=== PATIENT | male | born 1965 | race Caucasian/White ===

== ENCOUNTER 2017-11-22 00:29 | Inpatient (IN) | payer MEDICAID ==
[2017-11-22 01:42] LABS: HEMATOCRIT 44.6 % (42.0-52.0); HEMOGLOBIN 15.8 g/dl (14.0-18.0); MEAN CORPUSCULAR HEMOGLOBIN 33.8 pg (27.0-33.0); MEAN CORPUSCULAR HGB CONC 35.4 g/dl (32.0-36.5); MEAN CORPUSCULAR VOLUME 95.3 fl (80.0-96.0); PLATELET COUNT, AUTOMATED 257 10^3/uL (150-450); RED BLOOD COUNT 4.68 10^6/uL (4.30-6.10); RED CELL DISTRIBUTION WIDTH 12.5 % (11.5-14.5); WHITE BLOOD COUNT 10.2 10^3/uL (4.0-10.0)
[2017-11-22 02:10] LABS: AMPHETAMINES LEVEL URINE NEGATIVE (NEGATIVE); BARBITURATES URINE NEGATIVE (NEGATIVE); BENZODIAZEPINES URINE NEGATIVE (NEGATIVE); CANNABINOIDS URINE POSITIVE (NEGATIVE); COCAINE METABOLITE URINE NEGATIVE (NEGATIVE); METHADONE URINE NEGATIVE (NEGATIVE); OPIATES URINE NEGATIVE (NEGATIVE); PHENCYCLIDINE URINE NEGATIVE (NEGATIVE)
[2017-11-22 02:19] LABS: ACETAMINOPHEN LEVEL < 2.0 UG/ML (10.0-30.0); ALBUMIN 3.5 GM/DL (3.2-5.2); ALBUMIN/GLOBULIN RATIO 0.97 (1.00-1.93); ALKALINE PHOSPHATASE 57 U/L (45-117); ALT/SGPT 34 U/L (12-78); ANION GAP 10 MEQ/L (8-16); AST/SGOT 30 U/L (7-37); BILIRUBIN,DIRECT < 0.1 MG/DL (0.0-0.2); BILIRUBIN,TOTAL 0.3 MG/DL (0.2-1.0); BLOOD UREA NITROGEN 11 MG/DL (7-18); CALCIUM LEVEL 8.8 MG/DL (8.5-10.1); CARBON DIOXIDE LEVEL 25 MEQ/L (21-32); CHLORIDE LEVEL 108 MEQ/L (98-107); CREATININE FOR GFR 0.81 MG/DL (0.70-1.30); ETHYL ALCOHOL (ETHANOL) 0.135 % (0.000-0.010); GLOMERULAR FILTRATION RATE > 60.0 (>56); GLUCOSE, FASTING 128 MG/DL (70-105); POTASSIUM SERUM 3.3 MEQ/L (3.5-5.1); SALICYLATE LEVEL 2.7 MG/DL (5.0-30.0); SODIUM LEVEL 143 MEQ/L (136-145); TOTAL PROTEIN 7.1 GM/DL (6.4-8.2)
[2017-11-22] MEDS ORDERED: traZODone 50 MG TAB PO (04:30)
[2017-11-22] MEDS ORDERED: MAALOX 30 ML SUSP *UDC PO (04:30)
[2017-11-22] MEDS ORDERED: ACETAMINOPHEN TAB 650MG DOSE (2X325MG) PO (04:30)
[2017-11-22] MEDS ORDERED: MOM 30ML SUSPENSION UDC PO (04:30)
[2017-11-22] MEDS ORDERED: LORazepam 2 MG TAB PO (04:30)
[2017-11-22] MEDS: POTASSIUM CHLORIDE 10 MEQ SR TABLET PO (04:32)
[2017-11-22] MEDS: THIAMINE 100 MG TAB PO ×2 (04:45→09:23)
[2017-11-22] MEDS: FOLIC ACID 1 MG TAB PO (09:23)
[2017-11-22] MEDS: MULTIVITAMINS/MINERALS THERAP 1 TAB PO (09:23)
[2017-11-23 07:32] LABS: HEMATOCRIT 47.3 % (42.0-52.0); HEMOGLOBIN 16.6 g/dl (14.0-18.0); MEAN CORPUSCULAR HEMOGLOBIN 33.8 pg (27.0-33.0); MEAN CORPUSCULAR HGB CONC 35.1 g/dl (32.0-36.5); MEAN CORPUSCULAR VOLUME 96.3 fl (80.0-96.0); PLATELET COUNT, AUTOMATED 257 10^3/uL (150-450); RED BLOOD COUNT 4.91 10^6/uL (4.30-6.10); RED CELL DISTRIBUTION WIDTH 12.5 % (11.5-14.5); WHITE BLOOD COUNT 8.8 10^3/uL (4.0-10.0)
[2017-11-23 07:57] LABS: ANION GAP 3 MEQ/L (8-16); BLOOD UREA NITROGEN 14 MG/DL (7-18); CALCIUM LEVEL 9.2 MG/DL (8.5-10.1); CARBON DIOXIDE LEVEL 33 MEQ/L (21-32); CHLORIDE LEVEL 106 MEQ/L (98-107); CREATININE FOR GFR 0.87 MG/DL (0.70-1.30); GLOMERULAR FILTRATION RATE > 60.0 (>56); GLUCOSE, FASTING 112 MG/DL (70-105); SODIUM LEVEL 142 MEQ/L (136-145)
[2017-11-23 08:04] LABS: POTASSIUM SERUM 5.2 MEQ/L (3.5-5.1)
[2017-11-23] MEDS: FOLIC ACID 1 MG TAB PO (09:04)
[2017-11-23] MEDS: MULTIVITAMINS/MINERALS THERAP 1 TAB PO (09:04)
[2017-11-23] MEDS: THIAMINE 100 MG TAB PO ×2 (09:04→21:00)
[2017-11-23 09:48] LABS: ESTIMATED AVERAGE GLUCOSE 126 MG/DL (60-110)
[2017-11-23] MEDS: FLUoxetine 20 MG CAP PO (11:47)
[2017-11-24] MEDS: MULTIVITAMINS/MINERALS THERAP 1 TAB PO (08:33)
[2017-11-24] MEDS: FLUoxetine 20 MG CAP PO (08:33)
[2017-11-24] MEDS: FOLIC ACID 1 MG TAB PO (08:33)
[2017-11-24] MEDS: THIAMINE 100 MG TAB PO ×2 (08:34→21:00)
[2017-11-25] MEDS: FOLIC ACID 1 MG TAB PO (09:15)
[2017-11-25] MEDS: MULTIVITAMINS/MINERALS THERAP 1 TAB PO (09:15)
[2017-11-25] MEDS: FLUoxetine 20 MG CAP PO (09:15)
[2017-11-25] MEDS: GABAPENTIN 300 MG CAP PO (20:59)
[2017-11-26] MEDS: FOLIC ACID 1 MG TAB PO (08:32)
[2017-11-26] MEDS: FLUoxetine 20 MG CAP PO (08:32)
[2017-11-26] MEDS: MULTIVITAMINS/MINERALS THERAP 1 TAB PO (08:32)
[2017-11-26] MEDS: traZODone 100 MG TAB PO (21:26)
[2017-11-26] MEDS: GABAPENTIN 400 MG CAP PO (21:26)
[2017-11-27] MEDS: FOLIC ACID 1 MG TAB PO (08:05)
[2017-11-27] MEDS: MULTIVITAMINS/MINERALS THERAP 1 TAB PO (08:05)
[2017-11-27] MEDS: FLUoxetine 20 MG CAP PO (08:06)
[2017-11-27] MEDS: traZODone 100 MG TAB PO (21:59)
[2017-11-27] MEDS: GABAPENTIN 400 MG CAP PO (22:00)
[2017-11-28] MEDS: MULTIVITAMINS/MINERALS THERAP 1 TAB PO (08:50)
[2017-11-28] MEDS: FOLIC ACID 1 MG TAB PO (08:50)
[2017-11-28] MEDS: FLUoxetine 20 MG CAP PO (08:50)
[2017-11-28] MEDS: GABAPENTIN 400 MG CAP PO (21:20)
[2017-11-29] MEDS: FOLIC ACID 1 MG TAB PO (08:36)
[2017-11-29] MEDS: MULTIVITAMINS/MINERALS THERAP 1 TAB PO (08:36)
[2017-11-29] MEDS: FLUoxetine 20 MG CAP PO (08:36)
[2017-11-29] MEDS: GABAPENTIN 400 MG CAP PO (21:54)
[2017-11-30] MEDS: FLUoxetine 20 MG CAP PO (08:20)
[2017-11-30] MEDS: FOLIC ACID 1 MG TAB PO (08:20)
[2017-11-30] MEDS: MULTIVITAMINS/MINERALS THERAP 1 TAB PO (08:20)
[2017-11-30] MEDS: GABAPENTIN 400 MG CAP PO (20:01)
[2017-12-01] MEDS: MULTIVITAMINS/MINERALS THERAP 1 TAB PO (08:09)
[2017-12-01] MEDS: FLUoxetine 20 MG CAP PO (08:09)
[2017-12-01] MEDS: FOLIC ACID 1 MG TAB PO (08:09)
[2017-12-01] MEDS: GABAPENTIN 400 MG CAP PO (21:47)
[2017-12-02] MEDS: FLUoxetine 20 MG CAP PO (08:21)
[2017-12-02] MEDS: FOLIC ACID 1 MG TAB PO (08:21)
[2017-12-02] MEDS: MULTIVITAMINS/MINERALS THERAP 1 TAB PO (08:21)
[2017-12-02] MEDS: GABAPENTIN 400 MG CAP PO (21:31)
[2017-12-03] MEDS: FLUoxetine 20 MG CAP PO (08:24)
[2017-12-03] MEDS: FOLIC ACID 1 MG TAB PO (08:24)
[2017-12-03] MEDS: MULTIVITAMINS/MINERALS THERAP 1 TAB PO (08:24)
[2017-12-03] MEDS: GABAPENTIN 400 MG CAP PO (21:25)
[2017-12-04] MEDS: FOLIC ACID 1 MG TAB PO (08:03)
[2017-12-04] MEDS: FLUoxetine 20 MG CAP PO (08:03)
[2017-12-04] MEDS: MULTIVITAMINS/MINERALS THERAP 1 TAB PO (08:03)
[2017-12-04] MEDS: GABAPENTIN 400 MG CAP PO (20:37)
[2017-12-05] MEDS: FOLIC ACID 1 MG TAB PO (09:06)
[2017-12-05] MEDS: FLUoxetine 20 MG CAP PO (09:06)
[2017-12-05] MEDS: MULTIVITAMINS/MINERALS THERAP 1 TAB PO (09:06)
== END 2017-12-05 13:30 | disposition home or self-care (01) | DRG 754 ==
LOC: M PSY 11-25 15:04 → M ED 00:29 → M ED INP 04:16 → M PSY 10:20
DX: F43.21 Adjustment disorder with depressed mood (principal); E87.6 Hypokalemia; F10.10 Alcohol abuse, uncomplicated; F14.90 Cocaine use, unspecified, uncomplicated; D72.829 Elevated white blood cell count, unspecified; F17.200 Nicotine dependence, unspecified, uncomplicated

== ENCOUNTER 2018-01-06 15:02 | Emergency (ER) | payer MEDICAID ==
[2018-01-06 16:54] LABS: INFLUENZA A AMPLIFICATION NEGATIVE (NEGATIVE); INFLUENZA B AMPLIFICATION NEGATIVE (NEGATIVE)
== END 2018-01-06 18:12 | disposition home or self-care (01) ==
LOC: M ED 15:02
DX: J06.9 Acute upper respiratory infection, unspecified (principal); R03.0 Elevated blood-pressure reading, without diagnosis of hypertension; F17.200 Nicotine dependence, unspecified, uncomplicated; F41.9 Anxiety disorder, unspecified; Z79.899 Other long term (current) drug therapy
CPT/HCPCS: 87502

== ENCOUNTER → 2018-01-11 | Outpatient (REF) | payer OTHER, MEDICAID ==
[2018-01-11 16:28] LABS: CHLAMYDIA DNA AMPLIFICATION NEGATIVE (NEGATIVE); GC DNA AMPLIFICATION NEGATIVE (NEGATIVE)
== END ==
LOC: M LAB REF 13:17
DX: Z00.00 Encounter for general adult medical examination without abnormal findings (principal)

== ENCOUNTER → 2018-01-11 | Outpatient (REF) | payer OTHER, MEDICAID ==
[2018-01-11 14:41] LABS: ANION GAP 7 MEQ/L (8-16); BLOOD UREA NITROGEN 13 MG/DL (7-18); CALCIUM LEVEL 8.7 MG/DL (8.5-10.1); CARBON DIOXIDE LEVEL 25 MEQ/L (21-32); CHLORIDE LEVEL 106 MEQ/L (98-107); CHOLESTEROL LEVEL 210 MG/DL (<200); CREATININE FOR GFR 0.83 MG/DL (0.70-1.30); GLOMERULAR FILTRATION RATE > 60.0 (>56); GLUCOSE, FASTING 102 MG/DL (70-100); HDL CHOLESTEROL 35 MG/DL (>40); NON-HDL-C 175 MG/DL; POTASSIUM SERUM 4.2 MEQ/L (3.5-5.1); SODIUM LEVEL 138 MEQ/L (136-145); TRIGLYCERIDES LEVEL 245 MG/DL (<150)
[2018-01-11 15:07] LABS: HEPATITIS C VIRUS ABY INDEX 0.1 INDEX (<0.8)
[2018-01-11 15:08] LABS: HIV 1&2 SCREEN CENTAUR NEGATIVE (NEGATIVE)
== END ==
LOC: M LAB REF 13:54
DX: Z00.00 Encounter for general adult medical examination without abnormal findings (principal); E87.5 Hyperkalemia

== ENCOUNTER → 2018-01-21 | Outpatient (CLI) | payer MEDICAID | LOC: M OUTALCOH 11:34 | DX: F10.20 Alcohol dependence, uncomplicated (principal); F12.20 Cannabis dependence, uncomplicated ==

== ENCOUNTER 2018-02-01 09:37 | Outpatient (RCR) | payer MEDICAID | END 2018-02-16 | LOC: M OUTALCOH 09:37 | DX: F10.20 Alcohol dependence, uncomplicated (principal); F12.20 Cannabis dependence, uncomplicated; F17.200 Nicotine dependence, unspecified, uncomplicated ==

== ENCOUNTER 2018-02-18 13:59 | Outpatient (RCR) | payer MEDICAID | END 2018-03-18 | LOC: M OUTALCOH 13:59 | DX: F10.20 Alcohol dependence, uncomplicated (principal); F12.20 Cannabis dependence, uncomplicated; F17.200 Nicotine dependence, unspecified, uncomplicated ==

== ENCOUNTER 2018-04-02 16:00 | Outpatient (RCR) | payer MEDICAID | END 2018-04-18 | LOC: M OUTALCOH 04-05 08:45 | DX: F10.20 Alcohol dependence, uncomplicated (principal); F12.20 Cannabis dependence, uncomplicated; F17.200 Nicotine dependence, unspecified, uncomplicated ==

== ENCOUNTER → 2018-08-07 | Outpatient (CLI) | payer MEDICAID | LOC: M OUTALCOH 12:53 | DX: Z13.89 Encounter for screening for other disorder (principal); F10.20 Alcohol dependence, uncomplicated ==

== ENCOUNTER 2018-08-13 15:59 | Outpatient (RCR) | payer MEDICAID | END 2018-08-18 | LOC: M OUTALCOH 15:59 | DX: F10.20 Alcohol dependence, uncomplicated (principal); F12.20 Cannabis dependence, uncomplicated; F17.200 Nicotine dependence, unspecified, uncomplicated ==

== ENCOUNTER → 2018-09-20 | Outpatient (CLI) | payer MEDICAID | LOC: M OUTALCOH 08:30 | DX: Z13.89 Encounter for screening for other disorder (principal) ==

== ENCOUNTER 2018-10-01 16:00 | Outpatient (RCR) | payer MEDICAID | END 2018-10-18 | LOC: M OUTALCOH 10-14 10:39 | DX: F10.20 Alcohol dependence, uncomplicated (principal); F12.20 Cannabis dependence, uncomplicated; F17.200 Nicotine dependence, unspecified, uncomplicated ==

== ENCOUNTER 2018-11-14 14:00 | Outpatient (RCR) | payer MEDICAID ==
[~2018-11-14 14:00] MED LIST: DEPA1TAB PO; FLUO20CA8 PO; GABA-845 PO; MUCI1TAB16 PO; PROZ20CA11 PO; TRAZ-160 PO
== END 2018-11-18 ==
LOC: M OUTALCOH 14:00
PROVIDERS: ATTEND Psychiatry & Neurology Psychiatry
DX: F10.20 Alcohol dependence, uncomplicated (principal); F12.20 Cannabis dependence, uncomplicated; F17.200 Nicotine dependence, unspecified, uncomplicated

== ENCOUNTER → 2019-09-22 | Outpatient (CLI) | payer MEDICAID ==
[~2019-09-22] MED LIST changes: -TRAZ-160 PO; +TRAZ-252 PO
== END ==
LOC: M OUTALCOH 07:57
PROVIDERS: ATTEND Psychiatry & Neurology Psychiatry
DX: F10.20 Alcohol dependence, uncomplicated (principal); F12.20 Cannabis dependence, uncomplicated

== ENCOUNTER 2019-10-15 14:00 | Outpatient (RCR) | payer MEDICAID | END 2019-10-18 | LOC: M OUTALCOH 14:00 | PROVIDERS: ATTEND Psychiatry & Neurology Psychiatry | DX: F10.10 Alcohol abuse, uncomplicated (principal); F12.20 Cannabis dependence, uncomplicated; F17.200 Nicotine dependence, unspecified, uncomplicated ==

== ENCOUNTER 2019-11-05 16:00 | Outpatient (RCR) | payer MEDICAID ==
[~2019-11-05 16:00] MED LIST changes: +FLUO20CA20 PO; -FLUO20CA8 PO
== END 2019-11-18 ==
LOC: M OUTALCOH 16:00
PROVIDERS: ATTEND Psychiatry & Neurology Psychiatry
DX: F10.10 Alcohol abuse, uncomplicated (principal); F12.20 Cannabis dependence, uncomplicated; F17.200 Nicotine dependence, unspecified, uncomplicated

== ENCOUNTER 2019-12-17 14:48 | Outpatient (RCR) | payer MEDICAID | END 2019-12-19 | LOC: M OUTALCOH 14:48 | PROVIDERS: ATTEND Psychiatry & Neurology Addiction Medicine | DX: F10.10 Alcohol abuse, uncomplicated (principal); F12.20 Cannabis dependence, uncomplicated; F17.200 Nicotine dependence, unspecified, uncomplicated ==

== ENCOUNTER 2020-01-13 16:00 | Outpatient (RCR) | payer MEDICAID | END 2020-01-17 | LOC: M OUTALCOH 16:00 | PROVIDERS: ATTEND Psychiatry & Neurology Addiction Medicine | DX: F10.10 Alcohol abuse, uncomplicated (principal); F12.20 Cannabis dependence, uncomplicated ==

== ENCOUNTER 2020-02-13 14:06 | Outpatient (RCR) | payer OTHER | END 2020-02-17 | LOC: M OUTALCOH 14:06 | PROVIDERS: ATTEND Psychiatry & Neurology Addiction Medicine | DX: F10.20 Alcohol dependence, uncomplicated (principal); F12.20 Cannabis dependence, uncomplicated; F17.200 Nicotine dependence, unspecified, uncomplicated ==

== ENCOUNTER 2020-03-10 15:00 | Outpatient (RCR) | payer MEDICAID, OTHER | END 2020-03-18 | LOC: M OUTALCOH 15:00 | PROVIDERS: ATTEND Psychiatry & Neurology Addiction Medicine | DX: F10.20 Alcohol dependence, uncomplicated (principal); F12.20 Cannabis dependence, uncomplicated ==

== ENCOUNTER 2020-03-30 14:47 | Outpatient (RCR) | payer OTHER | END 2020-04-18 | LOC: M OUTALCOH 14:47 | PROVIDERS: ATTEND Psychiatry & Neurology Addiction Medicine | DX: F10.10 Alcohol abuse, uncomplicated (principal); F12.20 Cannabis dependence, uncomplicated ==

== ENCOUNTER → 2021-12-20 | Outpatient (CLI) | payer OTHER ==
[~2021-12-20] MED LIST changes: +FLUO-96 PO; -FLUO20CA20 PO; +GABA-283 PO; -GABA-845 PO
== END ==
LOC: M OUTALCOH 07:45
PROVIDERS: ATTEND Psychiatry & Neurology Psychiatry
DX: Z13.39 Encounter for screening examination for other mental health and behavioral disorders (principal)

== ENCOUNTER 2022-01-12 09:00 | Outpatient (RCR) | payer OTHER | END 2022-01-16 | LOC: M OUTALCOH 09:00 | PROVIDERS: ATTEND Psychiatry & Neurology Psychiatry | DX: F10.20 Alcohol dependence, uncomplicated (principal); F12.10 Cannabis abuse, uncomplicated; F17.200 Nicotine dependence, unspecified, uncomplicated ==

== ENCOUNTER → 2022-02-16 | Outpatient (RCR) | payer OTHER | LOC: M OUTALCOH 01-18 14:00 | PROVIDERS: ATTEND Psychiatry & Neurology Psychiatry | DX: F10.20 Alcohol dependence, uncomplicated (principal); F12.10 Cannabis abuse, uncomplicated; F17.200 Nicotine dependence, unspecified, uncomplicated ==

== ENCOUNTER 2022-03-16 13:00 | Outpatient (RCR) | payer OTHER | END 2022-03-18 | LOC: M OUTALCOH 13:00 | PROVIDERS: ATTEND Psychiatry & Neurology Psychiatry | DX: F10.20 Alcohol dependence, uncomplicated (principal); F12.10 Cannabis abuse, uncomplicated; F17.200 Nicotine dependence, unspecified, uncomplicated ==

== ENCOUNTER 2022-04-11 09:00 | Outpatient (RCR) | payer OTHER | END 2022-04-18 | LOC: M OUTALCOH 09:00 | PROVIDERS: ATTEND Psychiatry & Neurology Psychiatry | DX: F10.20 Alcohol dependence, uncomplicated (principal); F12.10 Cannabis abuse, uncomplicated; F17.200 Nicotine dependence, unspecified, uncomplicated ==

== ENCOUNTER → 2022-05-18 | Outpatient (RCR) | payer OTHER | LOC: M OUTALCOH 04-20 12:57 | PROVIDERS: ATTEND Psychiatry & Neurology Psychiatry | DX: F10.20 Alcohol dependence, uncomplicated (principal); F12.10 Cannabis abuse, uncomplicated; F17.200 Nicotine dependence, unspecified, uncomplicated ==

== ENCOUNTER 2022-06-08 13:00 | Outpatient (RCR) | payer OTHER | END 2022-06-18 | LOC: M OUTALCOH 13:00 | PROVIDERS: ATTEND Psychiatry & Neurology Psychiatry | DX: F10.20 Alcohol dependence, uncomplicated (principal); F12.10 Cannabis abuse, uncomplicated; F17.200 Nicotine dependence, unspecified, uncomplicated ==

== ENCOUNTER 2022-07-22 00:27 | Emergency (ER) | payer MEDICAID, OTHER ==
[2022-07-22 01:26] LABS: HEMATOCRIT 42.4 % (42.0-52.0); HEMOGLOBIN 15.2 g/dl (13.5-17.5); MEAN CORPUSCULAR HEMOGLOBIN 34.2 pg (27.0-33.0); MEAN CORPUSCULAR HGB CONC 35.8 g/dl (32.0-36.5); MEAN CORPUSCULAR VOLUME 95.3 fl (80.0-96.0); PLATELET COUNT, AUTOMATED 297 10^3/uL (150-450); RED BLOOD COUNT 4.45 10^6/uL (4.30-6.10); WHITE BLOOD COUNT 13.1 10^3/uL (4.0-10.0)
[2022-07-22 02:00] LABS: AMPHETAMINES LEVEL URINE NEGATIVE (NEGATIVE); BARBITURATES URINE NEGATIVE (NEGATIVE); BENZODIAZEPINES URINE NEGATIVE (NEGATIVE); CANNABINOIDS URINE POSITIVE (NEGATIVE); COCAINE METABOLITE URINE NEGATIVE (NEGATIVE); METHADONE URINE NEGATIVE (NEGATIVE); OPIATES URINE NEGATIVE (NEGATIVE); PHENCYCLIDINE URINE NEGATIVE (NEGATIVE)
[2022-07-22 02:02] LABS: RSV AMPLIFICATION NEGATIVE (NEGATIVE)
[2022-07-22 02:10] LABS: ACETAMINOPHEN LEVEL < 2.0 UG/ML (10.0-30.0); ALBUMIN 3.8 GM/DL (3.2-5.2); ALT/SGPT 34 U/L (12-78); BILIRUBIN,DIRECT 0.2 MG/DL (0.0-0.2); BILIRUBIN,TOTAL 0.5 MG/DL (0.2-1.0); BLOOD UREA NITROGEN 13 MG/DL (7-18); CALCIUM LEVEL 8.8 MG/DL (8.5-10.1); CARBON DIOXIDE LEVEL 21 MEQ/L (21-32); CHLORIDE LEVEL 110 MEQ/L (98-107); CREATININE FOR GFR 0.86 MG/DL (0.70-1.30); ETHYL ALCOHOL (ETHANOL) 0.167 % (0.000-0.010); GLOMERULAR FILTRATION RATE > 60.0 (>56); GLUCOSE, FASTING 102 MG/DL (70-100); POTASSIUM SERUM 4.2 MEQ/L (3.5-5.1); SALICYLATE LEVEL 3.5 MG/DL (5.0-30.0); SODIUM LEVEL 140 MEQ/L (136-145); TOTAL PROTEIN 7.5 GM/DL (6.4-8.2)
[2022-07-22 05:45] VITALS: BP 116/78
== END 2022-07-22 06:10 | disposition home or self-care (01) ==
LOC: M ED 00:27
DX: F10.129 Alcohol abuse with intoxication, unspecified (principal); F43.0 Acute stress reaction; F17.200 Nicotine dependence, unspecified, uncomplicated; F12.10 Cannabis abuse, uncomplicated; Z79.899 Other long term (current) drug therapy

== ENCOUNTER → 2023-05-23 | Outpatient (CLI) | payer BC | LOC: M CARPUL 15:00 | PROVIDERS: ATTEND Anesthesiology | DX: Z01.810 Encounter for preprocedural cardiovascular examination (principal) ==

== ENCOUNTER 2023-05-29 11:32 | Day surgery (SDC) | payer BC ==
[~2023-05-29] VITALS: Ht 175.3 cm; Wt 75.1 kg
[~2023-05-29 11:32] MED LIST changes: +ACETAMINOPHEN 1000MG 100ML IV BAG As Ordered ONE; +KETOROLAC 60MG 2ML VIAL As Ordered ONE; +LIDOCAINE 2% 100MG/5ML SDV (FOR ANES.) As Ordered ONE; +MIDAZOLAM INJ 2MG/2ML VIAL As Ordered ONE; +ONDANSETRON 4MG 2ML VIAL As Ordered ONE; +ROCURONIUM BROMIDE 50MG/5ML VIAL As Ordered ONE; +SUGAMMADEX SODIUM 500 MG/5 ML VIAL (BRIDION) As Ordered ONE; +ceFAZolin SOD 2 GM in IV 1 EA IV ONE; +fentaNYL 100 MCG/2 ML INJECTION As Ordered ONE; +propofoL 200 MG/20 ML VIAL As Ordered ONE
[2023-05-29] MEDS ORDERED: LR 1,000 ML IV SCH ×2 (12:05→14:50)
[2023-05-29] MEDS ORDERED: PHENYLephrine 500MCG 5ML (100MCG/ML) SYRINGE As Ordered ONE (13:39)
[2023-05-29] MEDS ORDERED: LABETALOL 100MG/20ML VIAL As Ordered ONE (14:01)
[2023-05-29] MEDS ORDERED: oxyCODONE 5MG TAB PO PRN (14:50)
[2023-05-29] MEDS ORDERED: fentaNYL 100 MCG/2 ML INJECTION IV PRN (14:50)
[2023-05-29] MEDS ORDERED: ONDANSETRON 4MG 2ML VIAL IV PRN (14:50)
[2023-05-29] MEDS ORDERED: NS 1,000 ML IV SCH (14:55)
[2023-05-29 16:10] VITALS: BP 128/73; TEMP 97.9; O2SAT 100
[2023-05-30] MEDS ORDERED: UNRESOLVED CLARIFICATION ENTRY XX SCH (00:01)
== END 2023-05-29 16:21 | disposition home or self-care (01) ==
LOC: M SDC 11:32
PROVIDERS: ATTEND Surgery
DX: K40.90 Unilateral inguinal hernia, without obstruction or gangrene, not specified as recurrent (principal); F41.9 Anxiety disorder, unspecified; F32.A Depression, unspecified; F17.210 Nicotine dependence, cigarettes, uncomplicated
CPT/HCPCS: 49650; C1781; J0131; J0665; J0690; J1100; J1885; J1920; J2250; J2371; J2405; J3010; S2900

== ENCOUNTER 2024-04-08 22:10 | Emergency (ER) | payer BC ==
[~2024-04-08 22:10] MED LIST changes: -ACETAMINOPHEN 1000MG 100ML IV BAG As Ordered ONE; -GABA-283 PO; +GABA-284 PO; -KETOROLAC 60MG 2ML VIAL As Ordered ONE; -LIDOCAINE 2% 100MG/5ML SDV (FOR ANES.) As Ordered ONE; -MIDAZOLAM INJ 2MG/2ML VIAL As Ordered ONE; -ONDANSETRON 4MG 2ML VIAL As Ordered ONE; -ROCURONIUM BROMIDE 50MG/5ML VIAL As Ordered ONE; -SUGAMMADEX SODIUM 500 MG/5 ML VIAL (BRIDION) As Ordered ONE; -ceFAZolin SOD 2 GM in IV 1 EA IV ONE; -fentaNYL 100 MCG/2 ML INJECTION As Ordered ONE; -propofoL 200 MG/20 ML VIAL As Ordered ONE
[2024-04-08 23:03] LABS: HEMATOCRIT 43.6 % (42.0-52.0); HEMOGLOBIN 15.6 g/dl (13.5-17.5); MEAN CORPUSCULAR HEMOGLOBIN 34.4 pg (27.0-33.0); MEAN CORPUSCULAR HGB CONC 35.8 g/dl (32.0-36.5); MEAN CORPUSCULAR VOLUME 96.2 fl (80.0-96.0); PLATELET COUNT, AUTOMATED 277 10^3/uL (150-450); RED BLOOD COUNT 4.53 10^6/uL (4.30-6.10); WHITE BLOOD COUNT 9.8 10^3/uL (4.0-10.0)
[2024-04-08 23:19] LABS: AMPHETAMINES LEVEL URINE NEGATIVE (NEGATIVE); BARBITURATES URINE NEGATIVE (NEGATIVE); BENZODIAZEPINES URINE NEGATIVE (NEGATIVE); COCAINE METABOLITE URINE NEGATIVE (NEGATIVE)
[2024-04-08 23:20] LABS: METHADONE URINE NEGATIVE (NEGATIVE); OPIATES URINE NEGATIVE (NEGATIVE); PHENCYCLIDINE URINE NEGATIVE (NEGATIVE)
[2024-04-08 23:22] LABS: ETHYL ALCOHOL (ETHANOL) 0.146 % (0.000-0.010)
[2024-04-08 23:23] LABS: ALKALINE PHOSPHATASE 56 U/L (46-116); ALT/SGPT 25 U/L (7.0-40); AST/SGOT 22 U/L (<34); BILIRUBIN,DIRECT 0.2 MG/DL (<0.4); BILIRUBIN,TOTAL 0.6 MG/DL (0.3-1.2); BLOOD UREA NITROGEN 14 MG/DL (9-23); CALCIUM LEVEL 9.2 MG/DL (8.5-10.1); CARBON DIOXIDE LEVEL 25 MMOL/L (20-31); CHLORIDE LEVEL 105 MMOL/L (98-107); CREATININE FOR GFR 0.82 MG/DL (0.70-1.30); GLOMERULAR FILTRATION RATE > 60.0 (>56); GLUCOSE, FASTING 111 MG/DL (60-100); POTASSIUM SERUM 3.8 MMOL/L (3.5-5.1); SALICYLATE LEVEL < 3.0 MG/DL (<30); SODIUM LEVEL 136 MMOL/L (136-145); TOTAL PROTEIN 7.4 G/DL (5.7-8.2)
[2024-04-08 23:25] LABS: THYROID STIMULATING HORMONE 1.977 uIU/ML (0.55-4.78)
[2024-04-08 23:30] LABS: CANNABINOIDS URINE POSITIVE (NEGATIVE)
[2024-04-09] MEDS ORDERED: HOME MED LIST COMPLETE! XX SCH (00:05)
[2024-04-09 01:22] VITALS: BP 156/94; TEMP 98; O2SAT 97
== END 2024-04-09 01:48 | disposition home or self-care (01) ==
LOC: M ED 22:10
DX: F43.0 Acute stress reaction (principal); Z91.51 Personal history of suicidal behavior; F17.200 Nicotine dependence, unspecified, uncomplicated

== ENCOUNTER 2025-03-30 04:24 | Emergency (ER) | payer BC ==
[~2025-03-30] VITALS: Ht 172.7 cm; Wt 70.9 kg
[2025-03-30] MEDS: NS (Normal Saline) 0.9% 1,000 ML IV ONE (05:21)
[2025-03-30] MEDS: ASPIRIN 81MG CHEW TABLET PO ONE (05:22)
[2025-03-30] MEDS: MORPHINE 4 MG/ML 1ML VIAL IV PRN (05:22)
[2025-03-30] MEDS: ONDANSETRON 4MG 2ML VIAL IV ONE (05:22)
[2025-03-30] MEDS ORDERED: ISOVUE-370 76% 100ML VIAL As Ordered ONE (05:34)
[2025-03-30 05:42] LABS: LIPASE 23 U/L (12-53)
[2025-03-30 05:43] LABS: CK-MB VALUE MASS 74.1 NG/ML (<3.6); ETHYL ALCOHOL (ETHANOL) < 0.003 % (0.000-0.010)
[2025-03-30 05:44] LABS: SALICYLATE LEVEL < 3.0 MG/DL (<30)
[2025-03-30 05:45] LABS: ALBUMIN 3.8 G/DL (3.2-5.2); ALKALINE PHOSPHATASE 56 U/L (40-129); ALT/SGPT 91 U/L (7.0-40); AST/SGOT 487 U/L (<34); BILIRUBIN,DIRECT 0.7 MG/DL (<0.4); BILIRUBIN,TOTAL 2.5 MG/DL (0.3-1.2); BLOOD UREA NITROGEN 17 MG/DL (9-23); CALCIUM LEVEL 9.1 MG/DL (8.5-10.1); CARBON DIOXIDE LEVEL 26 MMOL/L (20-31); CHLORIDE LEVEL 95 MMOL/L (98-107); CREATININE FOR GFR 0.84 MG/DL (0.70-1.30); GLOMERULAR FILTRATION RATE > 90.0 (>56); GLUCOSE, FASTING 203 MG/DL (60-100); POTASSIUM SERUM 4.3 MMOL/L (3.5-5.1); SODIUM LEVEL 130 MMOL/L (136-145); TOTAL PROTEIN 7.3 G/DL (5.7-8.2)
[2025-03-30 05:54] LABS: HEMATOCRIT 44.4 % (42.0-52.0); HEMOGLOBIN 16.1 g/dl (13.5-17.5); MEAN CORPUSCULAR HEMOGLOBIN 34.7 pg (27.0-33.0); MEAN CORPUSCULAR HGB CONC 36.3 g/dl (32.0-36.5); MEAN CORPUSCULAR VOLUME 95.7 fl (80.0-96.0); PLATELET COUNT, AUTOMATED 276 10^3/uL (150-450); RED BLOOD COUNT 4.64 10^6/uL (4.30-6.10); WHITE BLOOD COUNT 23.8 10^3/uL (4.0-10.0)
[2025-03-30] MEDS ORDERED: HEPARIN SOD 5000UNITS/ML 1ML VIAL/SYRINGE IV PRN (06:15)
[2025-03-30 06:20] LABS: CPK CREATINE PHOSPHOKINASE 2515 U/L (46-171); MB/CK RELATIVE INDEX 2.94 (< OR =4)
[2025-03-30 06:23] LABS: LYMPHOCYTES 7 % (16-44); MONOCYTES 16 % (0-5); NEUTROPHILS 77 % (28-66)
[2025-03-30 06:24] LABS: PLATELET ESTIMATE NORMAL (NORMAL)
[2025-03-30] MEDS: CLOPIDOGREL 300 MG TAB (PLAVIX) PO STA (06:25)
[2025-03-30 06:30] VITALS: TEMP 98.6
[2025-03-30] MEDS: HEPARIN SOD 5000UNITS/ML 1ML VIAL/SYRINGE IV ONE (06:31)
[2025-03-30] MEDS: HEPARIN DRIP 25,000 UNITS in IV 1 EA IV SCH (06:33)
[2025-03-30 06:45] VITALS: BP 117/72
[2025-03-30 06:56] VITALS: O2SAT 98
== END 2025-03-30 07:07 | disposition short-term general hospital (02) ==
LOC: M ED 04:24
DX: I21.3 ST elevation (STEMI) myocardial infarction of unspecified site (principal); I44.4 Left anterior fascicular block; I45.10 Unspecified right bundle-branch block; K57.30 Diverticulosis of large intestine without perforation or abscess without bleeding; R06.02 Shortness of breath; F17.200 Nicotine dependence, unspecified, uncomplicated; F12.10 Cannabis abuse, uncomplicated; F10.10 Alcohol abuse, uncomplicated
CPT/HCPCS: 71275; 74177; 80047; 80048; 80076; 80143; 82077; 82550; 82553; 83605; 83690; 84484; 85025; 85730; 93005; 93041; 96361; 96365; 96375; 96376; 99285; J2405; Q9967

== ENCOUNTER 2025-07-17 22:26 | Emergency (ER) | payer BC ==
[~2025-07-17] VITALS: Ht 172.7 cm; Wt 75.0 kg
[~2025-07-17 22:26] MED LIST changes: -PROZ20CA11 PO; +PROZ20CA12 PO
[2025-07-17 23:24] LABS: AMPHETAMINES LEVEL URINE NEGATIVE (NEGATIVE); BARBITURATES URINE NEGATIVE (NEGATIVE); BENZODIAZEPINES URINE NEGATIVE (NEGATIVE); COCAINE METABOLITE URINE NEGATIVE (NEGATIVE); METHADONE URINE NEGATIVE (NEGATIVE); OPIATES URINE NEGATIVE (NEGATIVE); PHENCYCLIDINE URINE NEGATIVE (NEGATIVE)
[2025-07-17 23:27] LABS: ETHYL ALCOHOL (ETHANOL) 0.262 % (0.000-0.010)
[2025-07-17 23:28] LABS: ALT/SGPT 32 U/L (7.0-40); AST/SGOT 32 U/L (<34); CALCIUM LEVEL 8.7 MG/DL (8.5-10.1); CANNABINOIDS URINE POSITIVE (NEGATIVE); CARBON DIOXIDE LEVEL 23 MMOL/L (20-31); CHLORIDE LEVEL 107 MMOL/L (98-107); CREATININE FOR GFR 0.89 MG/DL (0.70-1.30); GLOMERULAR FILTRATION RATE > 90.0 (>56); POTASSIUM SERUM 4.2 MMOL/L (3.5-5.1); SALICYLATE LEVEL < 3.0 MG/DL (<30); SODIUM LEVEL 142 MMOL/L (136-145)
[2025-07-17 23:32] LABS: PLATELET COUNT, AUTOMATED 272 10^3/uL (150-450)
[2025-07-18] MEDS: HALOPERIDOL LACTATE 5 MG/ML VIAL IM ONE (00:12)
[2025-07-18] MEDS: diphenhydrAMINE 50 MG/ML VIAL IM ONE (00:12)
[2025-07-18] MEDS ORDERED: ASPI-226 PO (02:08)
[2025-07-18] MEDS ORDERED: NICO1DIS12 PO (02:08)
[2025-07-18] MEDS ORDERED: CLOP75TA2 PO (02:08)
[2025-07-18] MEDS ORDERED: ATOR40TA75 PO (02:08)
[2025-07-18] MEDS ORDERED: VITA100T28 PO (02:08)
[2025-07-18] MEDS ORDERED: METO1TAB32 PO (02:08)
[2025-07-18] MEDS ORDERED: FOLI1TAB11 PO (02:08)
[2025-07-18] MEDS ORDERED: HOME MED LIST COMPLETE! XX SCH (02:10)
[2025-07-18] MEDS ORDERED: NICOTINE 21 MG/24 HR 1 EA TRANSDERMAL TD PRN (07:55)
[2025-07-18 10:02] VITALS: BP 134/92; TEMP 97.9; O2SAT 98
[2025-07-18] MEDS: ASPIRIN 81 MG ENTERIC TABLET PO SCH (10:07)
[2025-07-18] MEDS: FOLIC ACID 1 MG TAB PO SCH (10:07)
[2025-07-18] MEDS: ATORVASTATIN 20 MG TAB PO SCH (10:07)
[2025-07-18] MEDS: CLOPIDOGREL 75 MG TAB PO SCH (10:09)
[2025-07-18] MEDS: THIAMINE 100 MG TAB PO SCH (10:10)
[2025-07-18] MEDS: METOPROLOL SUCC *XL* 12.5 MG PER 1/2 TAB PO SCH (10:10)
== END 2025-07-18 10:32 | disposition home or self-care (01) ==
LOC: M ED 22:26
DX: F43.0 Acute stress reaction (principal); F10.129 Alcohol abuse with intoxication, unspecified; F41.9 Anxiety disorder, unspecified; F32.A Depression, unspecified; F12.10 Cannabis abuse, uncomplicated; Z79.82 Long term (current) use of aspirin; Z79.02 Long term (current) use of antithrombotics/antiplatelets; Z79.899 Other long term (current) drug therapy
CPT/HCPCS: 80048; 80076; 80143; 80307; 82077; 84443; 85027; 96372; 99285; J1200; J1630; J2060